=== PATIENT | male | born 1995 | race Caucasian/White ===

== ENCOUNTER 2023-03-26 16:46 | Emergency (ER) | payer SELFPAY ==
[2023-03-26] MEDS ORDERED: Diazepam 5 MG TAB ONE (17:21)
[2023-03-26] MEDS ORDERED: Ketorolac Tromethamine 30 MG/ML VIAL ONE (17:21)
[2023-03-26] MEDS ORDERED: Dexamethasone 4 MG TAB ONE (17:22)
== END 2023-03-26 19:16 | disposition home or self-care (01) ==
LOC: CSHERS 16:46
DX: M54.50 Low back pain, unspecified (principal)
CPT/HCPCS: 96372; 99283; J1885; J8540